=== PATIENT | female | born 1990 | race Caucasian/White ===

== ENCOUNTER 2017-12-29 11:30 | Emergency (ER) | payer SELFPAY ==
[~2017-12-29] VITALS: Ht 160 cm; Wt 99.8 kg
[~2017-12-29 11:30] MED LIST: implanon
[2017-12-29 12:18] VITALS: BP 147/77
[2017-12-29] MEDS ORDERED: DEXAMETHASONE 4 MG TABLET PO STA (12:54)
[2017-12-29] MEDS ORDERED: IPRATRPIUM/ALBUTEROL 0.5/2.5MG 3 ML NEBU. NEB ONE (13:00)
--- NOTE | 2017-12-29 14:14 | RAD ---
EXAM: Chest, 2 views. HISTORY: Asthma. COMPARISON: None. FINDINGS: Frontal and lateral views of the chest are obtained. There is no infiltrate, pleural effusion or pneumothorax. The heart is normal in size. IMPRESSION: No acute pulmonary finding. Electronically signed by: Vickie Chi MD (12/29/2017 2:11 PM) [place] [id number]
[2017-12-29] MEDS ORDERED: PROAIR HFA8.5 GM INH (14:21)
[2017-12-29] MEDS ORDERED: PRED50TA PO (14:21)
[2017-12-29] MEDS ORDERED: BENZ100C PO (14:21)
--- NOTE | 2017-12-29 14:21 | PHYS DOC ---
Past Medical History Past Medical History: Asthma, Pneumonia Past Surgical History: No Surgical History Additional Information: 04/15 PPD Alcohol Use: None Drug Use: None Adult General Chief Complaint Chief Complaint: ASTHMA HPI HPI Patient is a 27 year old female who presents with cough and wheezing 2-3 weeks. Patient states it comes and goes but is gotten worse over the last night. Patient states she has a rescue inhaler at home. She states she has been going to the rescue inhalers at least one month. Patient states that she has not yet gotten her health insurance and has no PCP at this time. Patient has a history of asthma and pneumonia. Patient this time does not take any medication. Patient is allergic to codeine. She's had a cough for 2-3 weeks and that her chest feels tight. Upon examination the patient's lungs are diminished in all lobes. Patient states at times she coughs up yellow or green mucus. Patient's only been taking Mucinex and antihistamines at home. Patient denies any chest pain but states that her chest tight. Patient denies nausea, vomiting , diarrhea. Patient denies abdominal pain. Patient speaks in full sentences. Patient received a DuoNeb and after her DuoNeb could hear breath sounds in all lobes. Chest x-ray shows no acute findings. Patient states she's feels much better. Patient also received a dose of dexamethasone received a prescription for 4 days of prednisone to take in 2 days. Patient is also given Tessalon Perles and a prescription for rescue inhaler. Patient to follow-up with a primary care physician. Review of Systems Review of Systems Constitutional: Denies fever or chills [] Eyes: Denies change in visual acuity, redness, or eye pain [] HENT: Denies nasal congestion or sore throat [] Respiratory: Cough and shortness of breath [] Cardiovascular: No additional information not addressed in HPI [] GI: Denies abdominal pain, nausea, vomiting, bloody stools or diarrhea [] : Denies dysuria or hematuria [] Musculoskeletal: Denies back pain or joint pain [] Integument: Denies rash or skin lesions [] Neurologic: Denies headache, focal weakness or sensory changes [] Endocrine: Denies polyuria or polydipsia [] All other systems were reviewed and found to be within normal limits, except as documented in this note. Current Medications Current Medications Current Medications Medications (Trade) Dose Ordered Sig/Gabriela Start Time Stop Time Status Last Admin Dose Admin Albuterol/ Ipratropium (Duoneb) 3 ml 1X ONCE 12/29/17 13:00 12/29/17 13:01 DC 12/29/17 14:42 3 ML Dexamethasone (Decadron) 8 mg 1X STAT 12/29/17 12:54 12/29/17 12:58 DC 12/29/17 13:46 8 MG Allergies Allergies Allergies Coded Allergies Type Severity Reaction Last Updated Verified codeine Allergy Intermediate 08/14/14 No Physical Exam Physical Exam Constitutional: Well developed, well nourished, no acute distress, non-toxic appearance. [] HENT: Normocephalic, atraumatic, bilateral external ears normal, oropharynx moist, no oral exudates, nose normal. [] Eyes: PERRLA, EOMI, conjunctiva normal, no discharge. [] Neck: Normal range of motion, no tenderness, supple, no stridor. [] Cardiovascular:Heart rate regular rhythm, no murmur [] Lungs & Thorax: Bilateral breath sounds diminished in all lobes to auscultation [] Abdomen: Bowel sounds normal, soft, no tenderness, no masses, no pulsatile masses. [] Skin: Warm, dry, no erythema, no rash. [] Back: No tenderness, no CVA tenderness. [] Extremities: No tenderness, no cyanosis, no clubbing, ROM intact, no edema. [] Neurologic: Alert and oriented X 3, normal motor function, normal sensory function, no focal deficits noted. [] Psychologic: Affect normal, judgement normal, mood normal. [] Current Patient Data Vital Signs Vital Signs Date Time Temp Pulse Resp B/P (MAP) Pulse Ox O2 Delivery O2 Flow Rate FiO2 12/29/17 14:42 97 Room Air 12/29/17 12:18 98.1 118 12 147/77 (100) 98.1 EKG EKG [] Radiology/Procedures Radiology/Procedures Chest x ray Impressions: [facility] [address] [place] [address] IMAGING REPORT Signed PATIENT: MILLIE ALVARENGA ACCOUNT: [id number] : 1990 LOCATION: ER AGE: 27 SEX: F EXAM STATUS: REG ER ORD. PHYSICIAN: AMBREEN NICKERSON APRN REASON: COUGH PROCEDURE: CHEST PA & LATERAL EXAM: Chest, 2 views. HISTORY: Asthma. COMPARISON: None. FINDINGS: Frontal and lateral views of the chest are obtained. There is no infiltrate, pleural effusion or pneumothorax. The heart is normal in size. IMPRESSION: No acute pulmonary finding. Electronically signed by: Vickie Yi MD (12/29/2017 2:11 PM) [place] [id number] DICTATED and SIGNED BY: VICKIE YI MD DATE: 12/29/17 1410 Course & Med Decision Making Course & Med Decision Making Pertinent Labs and Imaging studies reviewed. (See chart for details) [] Dragon Disclaimer Dragon Disclaimer This electronic medical record was generated, in whole or in part, using a voice recognition dictation system. Departure Departure Impression: Primary Impression: Asthma Additional Impression: Bronchitis Disposition: 01 HOME, SELF-CARE Condition: STABLE Referrals: LAURI ACEVEDO DO (PCP) Patient Instructions: Acute Bronchitis, Asthma, Adult Additional Instructions: Follow up wit your primary care physician Scripts Albuterol Sulfate (PROAIR HFA INHALER) 8.5 Gm Hfa.aer.ad 1 PUFF INH PRN Q6HRS PRN for SHORTNESS OF BREATH for 5 Days, INHALER 0 Refills Prov: AMBREEN NICKERSON APRN 12/29/17 Benzonatate (TESSALON PERLE) 100 Mg Capsule 1 CAP PO TID, #30 CAP Prov: AMBREEN NICKERSON APRN 12/29/17 Prednisone (PREDNISONE) 50 Mg Tablet 1 TAB PO DAILY, #4 TAB START ON 12/31 Prov: AMBREEN NICKERSON APRN 12/29/17 Problem Qualifiers Primary Impression: Asthma Asthma severity: mild Asthma persistence: persistent Asthma complication type: unspecified Qualified Codes: J45.30 - Mild persistent asthma, uncomplicated AMBREEN NICKERSON APRN Dec 29, 2017 14:21
== END 2017-12-29 15:00 | disposition home or self-care (01) ==
LOC: ER 11:30
DX: J45.909 Unspecified asthma, uncomplicated (principal); Z88.5 Allergy status to narcotic agent
CPT/HCPCS: 71046; 94640; 99284; J7620; J8540

== ENCOUNTER 2020-01-28 11:37 | Emergency (ER) | payer SELFPAY ==
[~2020-01-28] VITALS: Ht 160 cm; Wt 86.0 kg
[~2020-01-28 11:37] MED LIST changes: +ALBU2.5V8 INH; +BENZ100C PO; +PRED50TA PO
[2020-01-28] MEDS ORDERED: AMOX1TAB61 PO (12:31)
[2020-01-28] MEDS ORDERED: HYDR-3164 PO (12:31)
--- NOTE | 2020-01-28 12:31 | PHYS DOC ---
Past Medical History Past Medical History: Asthma, Pneumonia Past Surgical History: No Surgical History Smoking Status: Current Every Day Smoker Alcohol Use: None Drug Use: None General Adult EDM: Chief Complaint: ANIMAL BITE HPI: HPI: Patient is a 29 year old female who presents to the ED today complaining of a dog bite to the right thumb that occurred a week ago. Patient states she was trying to give her 10 pound dog medication when he nicked her right thumb. Patient states she has been taking care of the thumb with Neosporin and hydrogen peroxide with warm water soaks with no relief. She is right-handed. Review of Systems: Review of Systems: Constitutional: Denies fever or chills. [] Musculoskeletal: Denies back pain or joint pain. [] Integument: Reports right thumb infection Neurologic: Denies headache, focal weakness or sensory changes. [] Psychiatric: Denies depression or anxiety. [] Heart Score: Risk Factors: Risk Factors: DM, Current or recent (<one month) smoker, HTN, HLP, family history of CAD, obesity. Risk Scores: Score 0 - 3: 2.5% MACE over next 6 weeks - Discharge Home Score 4 - 6: 20.3% MACE over next 6 weeks - Admit for Clinical Observation Score 7 - 10: 72.7% MACE over next 6 weeks - Early Invasive Strategies Allergies: Allergies: Allergies Coded Allergies Type Severity Reaction Last Updated Verified codeine Allergy Intermediate 08/14/14 No Physical Exam: PE: Constitutional: Well developed, well nourished, no acute distress, non-toxic appearance. [] Skin: Warm, dry, right thumb around the nailbed with a puncture wound very very tiny roughly maybe 0.1 x 0.1 cm with surrounding cellulitis, no fluctuance to the region. Tenderness to the region. Full range of motion to the right thumb including flexion and extension. Adequate radial sensation to the right thumb. +2 right radial pulse. Back: No tenderness, no CVA tenderness. [] Extremities: No tenderness, no cyanosis, no clubbing, ROM intact, no edema. [] Neurologic: Alert and oriented X 3, normal motor function, normal sensory function, no focal deficits noted. [] Psychologic: Affect normal, judgement normal, mood normal. [] EKG: EKG: [] Radiology/Procedures: Radiology/Procedures: [] Course & Med Decision Making: Course & Med Decision Making Pertinent Labs and Imaging studies reviewed. (See chart for details) This is a 29-year-old female patient presenting to the ED today with infected dog bite to the right thumb. Patient refused x-rays of the right thumb. Dog bite occurred a week ago. Tetanus was updated. Discharged on Augmentin. Wound care instructions or return precautions provided. Dragon Disclaimer: Dragon Disclaimer: This electronic medical record was generated, in whole or in part, using a voice recognition dictation system. Departure Departure Impression: Primary Impression: Cellulitis of thumb, right Additional Impression: Dog bite of finger Qualified Codes: S61.259A - Open bite of unspecified finger without damage to nail, initial encounter; W54.0XXA - Bitten by dog, initial encounter Disposition: 01 DC HOME SELF CARE/HOMELESS Condition: STABLE Referrals: LAURI ACEVEDO DO (PCP) Follow-up with 1 to 2 weeks Patient Instructions: Animal Bite, Cellulitis, [id number] Additional Instructions: You have an infected right thumb from a dog bite. Take the prescribed antibiotics until completed. Soak the right thumb in warm water with Epson salt twice a day. Follow-up with your doctor in 1 week come back to the ED at any point symptoms worsen. Scripts Hydrocodone/Apap 5-325 (NORCO 5-325 TABLET) 1 Each Tablet 1 TAB PO Q6-8HRS PRN for PAIN, #14 TAB Prov: HOLA CHAKRABORTY APRN 01/28/20 Amoxicillin/Potassium Clav (AUGMENTIN 875-125 TABLET) 1 Each Tablet 1 TAB PO BID for 10 Days, #20 TAB 0 Refills Prov: HOLA CHAKRABORTY APRN 01/28/20 HOLA CHAKRABORTY APRN Jan 28, 2020 12:31
[2020-01-28] MEDS ORDERED: DIPH,PERTUSS(ACELL),TET VAC/PF 0.5 ML SYRINGE. VAX IM ONE ×2 (12:48→13:00)
== END 2020-01-28 12:57 | disposition home or self-care (01) ==
LOC: ER 11:37
DX: S61.051A Open bite of right thumb without damage to nail, initial encounter (principal); R20.2 Paresthesia of skin; L03.011 Cellulitis of right finger; J45.909 Unspecified asthma, uncomplicated; F17.200 Nicotine dependence, unspecified, uncomplicated; W54.0XXA Bitten by dog, initial encounter; Y93.89 Activity, other specified; Y92.89 Other specified places as the place of occurrence of the external cause; Y99.8 Other external cause status
CPT/HCPCS: 90471; 90715; 99283